=== PATIENT | female | born 1960 | race Caucasian/White ===

== ENCOUNTER → 2018-07-03 07:54 | Outpatient (CLI) | payer MEDICARE, SELFPAY | PROVIDERS: PCP Physician Assistant; Visit Provider Orthopaedic Surgery | DX: Z01.812 Encounter for preprocedural laboratory examination (principal); M17.12 Unilateral primary osteoarthritis, left knee ==

== ENCOUNTER → 2018-07-03 07:59 | Outpatient (CLI) | payer MEDICARE, SELFPAY ==
--- NOTE | 2018-07-03 | DI.MRI.S_ITS ---
PROCEDURE: MR KNEE LT WO CON INDICATIONS: Encounter for preprocedural laboratory examination TECHNIQUE: Noncontrast sagittal PD fast spin echo and T2 fast spin echo with fat saturation, sagittal 3-D FLASH with fat saturation; coronal T1 spin echo and PD fast spin echo with fat saturation, and axial PD fast spin echo with fat saturation through the knee. COMPARISON: None. FINDINGS: Image quality: Partially degraded by motion artifact. Menisci: Medial extrusion of the medial meniscus is present. There is amorphous high signal intensity within the anterior horn, body, and posterior horns of the medial meniscus, demonstratinginferior and superior articular articular surface extension. There is fragmentation of the medial meniscus. Linear high T2 signal intensity traverses the anterior horn, body, and posterior horn of the lateral meniscus, demonstrating inferior articular surface extension, indicating oblique tearing. Cruciate ligaments: The anterior and posterior cruciate ligaments appear intact. Medial structures: The medial collateral ligament demonstrates mild T2 signal elevation within its deep aspect. Visualized portions of the pes anserinus tendons appear normal. There is a small amount of medial bursal fluid. Lateral structures: The lateral collateral ligament, long and short heads of the biceps femoris tendon appear intact. The popliteus tendon appears normal. Iliotibial band appears normal. Anterior structures: The quadriceps and patellar tendons appear intact. Patellar alignment is normal. No femoral trochlear dysplasia or ventral trochlear prominence. No edema in the infrapatellar fat pad. Bones and cartilage: No bone marrow contusions or fractures. There is severe tricompartmental periarticular osteophyte formation, worst at the medial compartment margins. There is severe diffuse articular cartilage loss overlying the weightbearing aspects of the medial femoral condyle and medial tibial plateau. Mild diffuse articular cartilage loss overlies the weightbearing aspects of the lateral femoral condyle and lateral tibial plateau. Severe articular cartilage loss overlies the lateral aspect of the lateral patellar facet, as well as the central femoral trochlea. A few small intraosseous ganglia within the lateral patellar facet as well as the weightbearing aspects of the medial femoral condyle and medial tibial plateau are present. Joint space: There is a small knee joint effusion and a trace Whelan's cyst. 9 mm intra-articular loose body within the posterior lateral compartment. Normal appearing synovial plicae are incidentally noted. IMPRESSION: 1. Tricompartmental osteoarthritis with associated articular cartilage loss. 2. Medial and lateral meniscal tearing. 3. Medial bursitis. 4. Partial-thickness medial collateral ligament tear. 5. Knee joint effusion and intra-articular loose body. Dictated by: Trevor Meredith M.D. on 07/03/2018 at 9:52 Approved by: Trevor Meredith M.D. on 07/03/2018 at 9:58
[2018-07-03 10:48] LABS: Add Manual Diff / Slide Review NO; Basophils Absolute Auto 100 /uL (0-100); Basophils Percent Auto 0.5 % (0-2); Eosinophils Absolute Auto 300 /uL (0-450); Eosinophils Percent Auto 2.8 % (2-4); Hematocrit 39.6 % (36-46); Hemoglobin 13.8 g/dL (12.0-16.0); Lymphocytes Absolute Auto 3000 /uL (1100-4500); Lymphocytes Percent Auto 31.1 % (25-40); Mean Corpuscular HGB Conc 34.9 % (30-36); Mean Corpuscular Hemoglobin 30.1 PG (26-34); Mean Corpuscular Volume 86.1 fL (80-100); Monocytes Absolute Auto 800 /uL (0-900); Monocytes Percent Auto 8.1 % (3-14); Neutrophils Absolute Auto 5500 /uL (1500-7000); Neutrophils Percent Auto 57.5 % (50-75); Platelet Count 220 X10^3/uL (150-400); Red Cell Distribution Width 14.2 % (11.6-14.8); White Blood Cell Count 9.6 X10^3/uL (4.5-11.0)
[2018-07-03 11:03] LABS: Hemoglobin A1C% w Est Avg Glu 7.1 % (4.0-6.0)
[2018-07-03 11:18] LABS: Carbon Dioxide 29 mmol/L (22-32); Chloride 99 mmol/L (98-107); HEMOLYSIS < 15 (0-50); Potassium 4.4 mmol/L (3.4-5.1); Sodium 140 mmol/L (137-145)
== END ==
PROVIDERS: PCP Physician Assistant; Visit Provider Orthopaedic Surgery
DX: M17.10 Unilateral primary osteoarthritis, unspecified knee (principal); Z01.818 Encounter for other preprocedural examination; Z01.812 Encounter for preprocedural laboratory examination; R73.9 Hyperglycemia, unspecified
CPT/HCPCS: 36415; 73721; 80051; 83036; 85025; 93005

== ENCOUNTER → 2018-07-04 19:53 | Outpatient (REF) | payer MEDICARE, SELFPAY | LOC: LAB 19:53 | PROVIDERS: PCP Physician Assistant; Visit Provider Physician Assistant | DX: R31.9 Hematuria, unspecified (principal) | CPT/HCPCS: 87077; 87086; 87186 ==

== ENCOUNTER 2018-08-08 09:01 | Observation (INO) | payer MEDICARE, SELFPAY ==
[2018-07-29 10:01] VITALS: BMI 44.4
[2018-08-07] VITALS (13 sets, daily range): BP systolic 100–131; BP diastolic 36–85; PULSE 70–90; RESP 12–18; TEMP 36.2–37; O2SAT 95–98; BMI 44.3
--- NOTE | 2018-08-07 09:02 | PM.PREOP ---
Pre-operative Note Interval Note History & Physical reviewed/Exam performed by Physician: Yes Changes to H&P: No
[2018-08-07] MEDS: LACTATED RINGERS 1,000 ML 42 ML IV ×2 (10:00→13:10)
[2018-08-07] MEDS: ACETAMINOPHEN 325 MG TABLET 975 MG PO ×3 (10:12→22:18)
[2018-08-07] MEDS: PREGABALIN 75 MG CAPSULE PO (10:12)
--- NOTE | 2018-08-07 11:15 | DI.RAD.S_ITS ---
PROCEDURE: XR KNEE LT 1TO2V INDICATIONS: LT TOTAL KNEE TECHNIQUE: 2 view(s) of the knee acquired. COMPARISON: None. FINDINGS: Bones: Patient is status post knee joint arthroplasty. Hardware components are in expected positions. Visualized bony structures are intact. Chronic deformity of the proximal tibia. Soft tissues: Overlying postoperative changes are noted. IMPRESSION: Expected postoperative appearance Dictated by: Edwar Valles M.D. on 08/07/2018 at 14:30 Approved by: Edwar Valles M.D. on 08/07/2018 at 14:31
[2018-08-07] MEDS: CEFAZOLIN 2 GM/100 ML FROZ.PIGGY IV ×2 (11:35→19:32)
[2018-08-07] MEDS: LIDOCAINE 1% W/EPI INJ 20 ML INJ (12:01)
[2018-08-07] MEDS: TRANEXAMIC ACID 1,000 MG VIAL 1000 MG INJ (12:05)
--- NOTE | 2018-08-07 12:16 | SUR.OPER ---
Supine on padded OR bed. Pillow under head, arms secured on padded armboards <90 degree abduction. Safety belt across torso. Non-operative leg secured with tape over blanket over lower leg. Operative leg secured in DeMayo/Bhavik positioner. Foam padded brace at thigh of operative leg.
[2018-08-07] MEDS: POVIDONE-IODINE 15 ML, SODIUM CHLORIDE 0.9% 250 ML TOP (12:37)
[2018-08-07] MEDS: BUPIVACAINE 0.5% W/ EPI (PF) 20 ML, BUPIVACAINE LIPOSOME 266 MG, SODIUM CHLORIDE 0.9% 8... INJ (12:39)
[2018-08-07] MEDS: BUPIVACAINE 0.5% W/ EPI (PF) 10 ML, TRANEXAMIC ACID 1,000 MG, SODIUM CHLORIDE 0.9% 20 ML INJ (12:40)
--- NOTE | 2018-08-07 13:39 | PM.OP.1 ---
Operative Date/Time/Diagnoses Date of procedure: 08/07/18 Time of procedure: 13:39 Pre-op diagnosis: Severe left knee osteoarthritis Post-op diagnosis: same Procedure & Clinicians Procedure: Total knee arthroplasty left knee Same procedure as scheduled: Yes Indications: The patient presents today for total knee arthroplasty after failure of conservative treatment. The nature of the procedure including the risks and benefits, alternatives, postoperative course and expected outcome were discussed and all questions answered. Consent was obtained. Operative site confirmed and marked. Surgeon: Jose Guerrier Mechanical Product Design Engineer: Frankie Cardoza Anesthesia Type: Spinal and Local Operative Notes Findings: The patient had severe osteoarthritis with a significant fixed varus deformity and flexion contracture. A +4 cut was necessary from what was planned. The femur was downsized from the planned 4 to a 3. Closure Type: primary Specimen(s): none sent Prosthetic devices, grafts, tissues, transplants, or devices: Llamas and [employer] BCS: 3 femoral component, 3 tibial component, 12 mm BCS polyethylene tray and 32 x 9 mm round patella Applied: implant(s) Estimated Blood Loss (mL): 75 Blood products transfused: none Tourniquet time (min): 30 Procedure in detail: The patient was taken to the operative suite and placed under spinal anesthesia. The patient was given prophylactic antibiotics prior to surgery. The patient was also given tranexamic acid, 1 g, just prior to surgery for postoperative hemostasis. The lateral knee was prepped and the joint injected with 20 mL of 1% Lidocaine with epinephrine. The knee was then prepped and draped in usual sterile fashion. The leg was exsanguinated with an Esmarch dressing and the tourniquet raised to 250 torr. A 15 cm anterior incision was made. Next a medial trivector arthrotomy was made. The extensor mechanism was marked to ensure accurate repair. Initial exposing dissection was carried out medially and laterally. The knee was then extended and the patellar thickness was measured and a cut made removing approximately 9 mm of bone with a goal of restoring normal patellar thickness. The patella was then sized and drilled. Some excess lateral bone was excised and the patellofemoral ligament released. The tourniquet was then released. The knee was then flexed and the Llamas & [employer] femoral guide was placed. The anterior pins were placed and the distal rotation holes drilled. The distal cutting guide was placed and the templated distal femoral cut was made. The templating cutting block was then placed and the anterior, posterior and chamfer cuts made. The Llamas [employer] tibial guide was placed and the alignment checked along the axis of the proximal tibial with a maria a. The proximal tibial cut was then made with an oscillating saw. All meniscus and bony debris was then removed. Flexion extension gaps were checked. The knee was much looser in flexion and extension. There was not room in extension for a 9 mm block. Four more mm of distal femur was resected. This better balance the gaps although there was still a somewhat larger gap in flexion and extension. Medial lateral balance was good with just slight increased medial laxity. The soft tissues were then injected with a combination of 20 mL of half percent Marcaine with epinephrine and 20 mL of Exparel. The trial components were then placed. The knee went into full extension and flexion beyond 120?. There was good medial- lateral balance throughout motion. Patellar tracking was excellent. The trial components were removed and size is confirmed for the final implants. The knee was then exsanguinated with an Esmarch dressing and the tourniquet reapplied for cementing. The knee was cleansed with Pulsavac irrigation and dried. The final components were cemented in with high viscosity vacuum mixed bone cement with antibiotics. The knee was held in extension and the patellar clamp until the cement had adequately cured. The knee was then irrigated with dilute Betadine solution. The extensor mechanism was closed with 5 interrupted #1 Vicryl sutures and a running 2 Quill suture at 90 degrees of flexion. The joint was then injected with a combination of 1 g of tranexamic acid and 20 mL of quarter percent Marcaine with epinephrine. The subcutaneous tissue was closed with 2-0 Vicryl. The skin was closed with perry and surgical adhesive. An Aquacel dressing and Elmer wrap were then applied. Complications: none Condition: stable Disposition: PACU Plan for aftercare: [facility] protocol for total knee arthroplasty.
--- NOTE | 2018-08-07 13:44 | P.OP_ITS ---
Operative Date/Time/Diagnoses Date of procedure: 08/07/18 Time of procedure: 13:39 Pre-op diagnosis: Severe left knee osteoarthritis Post-op diagnosis: same Procedure & Clinicians Procedure: Total knee arthroplasty left knee Same procedure as scheduled: Yes Indications: The patient presents today for total knee arthroplasty after failure of conservative treatment. The nature of the procedure including the risks and benefits, alternatives, postoperative course and expected outcome were discussed and all questions answered. Consent was obtained. Operative site confirmed and marked. Surgeon: Jose Guerrier Doughnut Icer: Frankie Cardoza Anesthesia Type: Spinal and Local Operative Notes Findings: The patient had severe osteoarthritis with a significant fixed varus deformity and flexion contracture. A +4 cut was necessary from what was planned. The femur was downsized from the planned 4 to a 3. Closure Type: primary Specimen(s): none sent Prosthetic devices, grafts, tissues, transplants, or devices: Llamas and [employer] BCS: 3 femoral component, 3 tibial component, 12 mm BCS polyethylene tray and 32 x 9 mm round patella Applied: implant(s) Estimated Blood Loss (mL): 75 Blood products transfused: none Tourniquet time (min): 30 Procedure in detail: The patient was taken to the operative suite and placed under spinal anesthesia. The patient was given prophylactic antibiotics prior to surgery. The patient was also given tranexamic acid, 1 g, just prior to surgery for postoperative hemostasis. The lateral knee was prepped and the ellen nt injected with 20 mL of 1% Lidocaine with epinephrine. The knee was then prepped and draped in usual sterile fashion. The leg was exsanguinated with an Esmarch dressing and the tourniquet raised to 250 torr. A 15 cm anterior incision was made. Next a medial trivector arthrotomy was made. The extensor mechanism was marked to ensure accurate repair. Initial exposing dissection was carried out medially and laterally. The knee was then extended and the patellar thickness was measured and a cut made removing approximately 9 mm of bone with a goal of restoring normal patellar thickness. The patella was then sized and drilled. Some excess lateral bone was excised and the patellofemoral ligament released. The tourniquet was then released. The knee was then flexed and the Llamas & [employer] femoral guide was placed. The anterior pins were placed and the distal rotation holes drilled. The distal cutting guide was placed and the templated distal femoral cut was made. The templating cutting block was then placed and the anterior, posterior and chamfer cuts made. The Llam[employer] tibial guide was placed and the alignment checked along the axis of the proximal tibial with a maria a. The proximal tibial cut was then made with an oscillating saw. All meniscus and bony debris was then removed. Flexion extension gaps were checked. The knee was much looser in flexion and extension. There was not room in extension for a 9 mm block. Four more mm of distal femur was resected. This better balance the gaps although there was still a somewhat larger gap in flexio n and extension. Medial lateral balance was good with just slight increased medial laxity. The soft tissues were then injected with a combination of 20 mL of half percent Marcaine with epinephrine and 20 mL of Exparel. The trial components were then placed. The knee went into full extension and flexion beyond 120?. There was good medial- lateral balance throughout motion. Patellar tracking was excellent. The trial components were removed and size is confirmed for the final implants. The knee was then exsanguinated with an Esmarch dressing and the tourniquet reapplied for cementing. The knee was cleansed with Pulsavac irrigation and dried. The final components were cemented in with high viscosity vacuum mixed bone cement with antibiotics. The knee was held in extension and the patellar clamp until the cement had adequately cured. The knee was then irrigated with dilute Betadine solution. The extensor mechanism was closed with 5 interrupted #1 Vicryl sutures and a running 2 Quill suture at 90 degrees of flexion. The joint was then injected with a combination of 1 g of tranexamic acid and 20 mL of quarter percent Marcaine with epinephrine. The subcutaneous tissue was closed with 2-0 Vicryl. The skin was closed with perry and surgical adhesive. An Aquacel dressing and Elmer wrap were then applied. Complications: none Condition: stable Disposition: PACU Plan for aftercare: [facility] protocol for total knee arthroplasty.
[2018-08-07] MEDS: LACTATED RINGERS 1,000 ML 125 ML IV ×2 (15:03→22:17)
--- NOTE | 2018-08-07 15:36 | PC.NURSE ---
Patient received from PACU, vss, awake and talkative. Aquacel with ZAIRA in place and intact. wiggling toes, palpable pulses. Oriented to room and call light, IV fluids started as ordered. Call light placed within reach. continue to monitor.
--- NOTE | 2018-08-07 15:49 | PT.IIE ---
Current Diagnoses Unilateral primary osteoarthritis, left knee (08/07/18) Surgery Performed Operation Date: 08/07/18 11:15 Actual Procedures p Total Knee Arthroplasty(Left) - Jose Guerrier MD Surgical History (Last Updated 07/29/18 @ 10:29 by Lisseth Storey RN) Hx of arthroscopy of left knee (Acute) Hx of arthroscopy of right knee (Acute ~2004) Hx of dilation and curettage (Acute) S/P LASIK surgery of both eyes (Acute ~2004) S/P wrist surgery (Acute ~2011) Medical History (Last Updated 07/29/18 @ 10:29 by Lisseth Storey RN) Anxiety (Acute) Diabetes (Acute) Edema (Acute) Fatty liver determined by biopsy (Acute ~2009) HTN (hypertension) (Acute) Hx of ectopic (Acute) Hyperlipidemia (Acute) Hypothyroid (Acute) BARBARA on CPAP (Acute) PMR (polymyalgia rheumatica) (Acute ~2007) Tonsil stone (Acute) UTI (urinary tract infection) (Acute 07/09/18) Umbilical hernia (Acute) Physical Therapy Inpatient Evaluation/Re-Eval M1 PT/OT-IP Prior Functional Status Start: 08/07/18 17:32 Freq: NEEDED Status: Active Protocol: Document 08/07/18 15:49 AB (Rec: 08/07/18 17:56 AB [id number]) Medical Review Prior Functional Status Medical History Reviewed Yes Communication able to make needs known Mobility and Gait pt stated that she is modified independent with all mobilities and ambulation with occasional use of SPC indoors and uses 4WW for outdoor mobility/long distance mobility Social History Household Members spouse Living Arrangements House Number of Floors (Floors) Two Floors Number of Stairs To Enter/Railing? 5 steps to enter with R rail ascending has 14 steps to get to bedroom level with R rails ascending and L sided ledge pt stated that she plans to stay on main level of the house Home Environment Standard Height Toilet Tub/Shower Home Equipment Four Wheel Walker Straight Cane Bedside Commode Hand Held Shower Grab Bars In Shower M2 PT-IP Current Condition Start: 08/07/18 17:32 Freq: NEEDED Status: Active Protocol: Document 08/07/18 15:49 AB (Rec: 08/07/18 17:56 AB [id number]) Physical Therapy Current Condition Current Condition Evaluation Date 08/07/18 Treatment Diagnosis s/p L TKA; difficulty in walking Onset Date 08/07/18 Weight Bearing Status Weight Bearing Status Weight Bear as Tolerated M3 PT-IP Subjective Start: 08/07/18 17:32 Freq: NEEDED Status: Active Protocol: Document 08/07/18 15:49 AB (Rec: 08/07/18 17:56 AB [id number]) Subjective Physical Therapy Visit Type Type Initial Evaluation Visit Start Time 15:49 Visit Stop Time 16:30 Total Visit Minutes 39 Number of TODDLER GUIDE Visits 0 Physical Therapy Visit Comments Patient Comments pt requesting to use the toilet Therapy Pain Assessment Pain When Pain Assessed At Rest Pain Present Pain Present Pain Reported Location Left Knee Intensity 1 Scale Used Numeric (1 - 10) Pain Management Techniques Apply Cold Re-positioning Timing of Activity with Medications M4 PT-IP Mobility and Gait Start: 08/07/18 17:32 Freq: NEEDED Status: Active Protocol: Document 08/07/18 15:49 AB (Rec: 08/07/18 17:56 AB [id number]) PT-Bed Mobility Assessment Supine to Sit Supine to Sit Standby Assistance Scooting Scooting to Edge of Bed Standby Assistance PT-Transfer Assessment Sit to and From Stand Sit to and from Stand Standby Assistance Equipment Transfer Assistive Device Gait Belt Front Wheeled Walker Transfers Transfer Destination Toilet Transfer Technique pt ambulated to the toilet Transfer Ability Level of Assist Minimal Assistance 1 Person Assistance Use of Upper Extremities Comments Mobility Comments pt completed sit to stand from EOB CGA and ambulated to the toilet using FWW min A and cues for quads activation and safety. pt ambulated out of the toilet using FWW min A and cues and agreed to sit up on chair. positioned pt on chair . ice pack provided. call light and table positioned. Gait Assessment Gait Distance (Feet) 12 Able to Maintain Weight Bearing Status Yes During Gait Assistive Devices Assistive Device Gait Belt Front Wheeled Walker Orthotic/Prosthetic Devices or Brace: No Gait Deviations General Gait Pattern Antalgic Decreased Stride Length Decreased Feet Clearance Step-to Gait Factors Limiting Gait Function Factors Limiting Gait Function Decreased Activity Tolerance Decreased Sensation Decreased Strength Limited Range of Motion Pain Poor Balance Comments Gait Comments able to walk to the toilet using FWW PT-Balance Assessment Sitting Balance and Reactions Static Sitting Balance Ability Good Dynamic Sitting Balance Ability Good Standing Balance and Reactions Static Standing Balance Ability Fair Dynamic Standing Balance Ability Fair Device Used FWW M5 PT-IP Objective Assessments Start: 08/07/18 17:32 Freq: NEEDED Status: Active Protocol: Document 08/07/18 15:49 AB (Rec: 08/07/18 17:56 AB [id number]) Orientation Orientation/Cognition Level of Alertness Alert Orientation Name Age Birthday Month Date Year Day of Week Place Situation Safety Awareness Understands Safety Issues Memory Description No Deficits Noted Gross Range of Motion Lower Extremity ROM Assessment Left Impaired Impairments L knee flexion: ~ 50 deg L knee extension: ~ 5 deg less from neutral Strength Lower Extremity Strength Assessment Left Impaired Knee 3+/5 Coordination Assessment Gross Coordination Gross Coordination WNL Sensation Assessment Sensation Sensation Description Numbness Comments Sensation Comments still c/o a little numbness on BLE but have motor control Muscle Tone Muscle Tone WNL Yes M6 PT-IP Treatment Start: 08/07/18 17:32 Freq: NEEDED Status: Active Protocol: Document 08/07/18 15:49 AB (Rec: 08/07/18 17:56 AB [id number]) Physical Therapy Treatment Exercises Exercises Quad Sets Heel Slides Education Education Provided Precautions Weight Bearing Status Post-Op Packet Safety M7 PT-IP Assessment and Plan Start: 08/07/18 17:32 Freq: NEEDED Status: Active Protocol: Document 08/07/18 15:49 AB (Rec: 08/07/18 17:56 AB [id number]) PT Summary Assessment and Plan Potential Rehabilitation Potential Good Status of Condition at Evaluation Stable Summary Impairments Pain ROM Strength Balance Coordination Sensation Bed Mobility Transfers Gait Activity Tolerance Assessment Summary pt requiring one person assist with mobility and will likely improve in mobility during hospital stay. pt will have her spouse to assist her at home. will conduct caregiver training when appropriate and stair climbing training to be completed prior to d/c. Goals Bed Mobility Goal Independent Transfer Goal Independent Front Wheeled Walker Gait Goal Independent Front Wheel Walker Gait Distance 200 Other Goals up/down 5 steps R rail SBA Days to Meet Goals 3 Frequency of Treatment Frequency Of Treatment Twice a Day Treatment Plan Physical Therapy Treatment Plan Bed Mobility Training Transfer Training Gait Training Therapeutic Exercise Balance Retraining Post Op Education Discharge Planning Hot or Cold Pack Neuromuscular Re-ed Coordination Retraining Manual Therapy Other Recommendations and Next Treatment ambulation, stair climbing Focus Recommendations To Nursing Amount of Assist Needed 1 Person Assist Discharge Recommendations PT Discharge Recommendations Home with Assistance Outpatient PT
[2018-08-07] MEDS: OXYCODONE IR 5 MG TABLET PO ×3 (16:34→22:17)
[2018-08-07] MEDS: HYDROMORPHONE 0.5 MG INJ IV ×2 (18:13→22:40)
[2018-08-07] MEDS: ROSUVASTATIN 10 MG TABLET 5 MG PO (22:18)
[2018-08-07] MEDS: METOPROLOL ER 50 MG TABLET 100 MG PO (22:19)
[2018-08-07] MEDS: METFORMIN HCL 500 MG TABLET 1000 MG PO (22:19)
[2018-08-07] MEDS: AMLODIPINE 5 MG TABLET 10 MG PO (22:20)
[2018-08-07] MEDS: ASPIRIN EC 81 MG TABLET PO (22:20)
[2018-08-08] VITALS (10 sets, daily range): BP systolic 127–148; BP diastolic 69–87; PULSE 80–93; RESP 15–20; TEMP 36.1–37.3; O2SAT 92–98
[2018-08-08] MEDS: OXYCODONE IR 5 MG TABLET PO ×3 (01:24→08:53)
[2018-08-08] MEDS: MELATONIN 3 MG TABLET 6 MG PO (01:27)
--- NOTE | 2018-08-08 01:45 | PC.NURSE ---
Addendum entered by Tammy Steele R.N. 08/08/18 05:52: Had Oxycodone at 0454 for 8/10 pain and states pain is only down to 7/10; requested/medicated with IV Dilaudid. Original Note: Patient is alert and oriented. Breath sounds CTA with RA sat of 94%. HRR. Denies nausea. BT present and is passing flatus. Voiding frequently but denies dysuria or urgency and is continent. Able to turn self in bed. Out of bed with walker and 1 assist as is weak in left LE. Dressing to left knee is CDI with alla wrap covering. Complains of 6/10 sharp pressure in knee so medicated with Oxycodone and ice pack applied. Wearing SCD on right leg but declines on left due to knee pain. Using CPAP to sleep. Requested/medicated with Melatonin. Fall risk score is high and bed alarm is activated.
[2018-08-08] MEDS: CEFAZOLIN 2 GM/100 ML FROZ.PIGGY IV (02:43)
[2018-08-08] MEDS: HYDROMORPHONE 0.5 MG INJ IV ×3 (02:51→07:55)
[2018-08-08] MEDS: LEVOTHYROXINE 75 MCG TABLET PO (05:47)
[2018-08-08] MEDS: LEVOTHYROXINE 100 MCG TABLET PO (05:47)
[2018-08-08 06:33] LABS: Hematocrit 35.3 % (36-46); Hemoglobin 12.2 g/dL (12.0-16.0)
[2018-08-08] MEDS: ACETAMINOPHEN 325 MG TABLET 975 MG PO ×3 (08:00→22:42)
[2018-08-08] MEDS: METFORMIN HCL 500 MG TABLET 1000 MG PO ×2 (08:00→17:10)
[2018-08-08] MEDS: LOSARTAN 50 MG TABLET 100 MG PO (08:00)
[2018-08-08] MEDS: hydroCHLOROthiazide 25 MG TABLET PO (08:01)
[2018-08-08] MEDS: MELOXICAM 7.5 MG TABLET 15 MG PO (08:01)
[2018-08-08] MEDS: ASPIRIN EC 81 MG TABLET PO ×2 (08:01→20:42)
--- NOTE | 2018-08-08 09:09 | P.PN_ITS ---
Subjective Date Patient Seen: 08/08/18 Time Patient Seen: 09:07 Interval history: Hospital day 2, postop day 1 following left total knee arthroplasty by Dr. Guerrier. Patient remained stable postoperatively. She did do some physical therapy yesterday but having increased knee pain today. She has had receive IV Dilaudid this morning. Patient concerned about going home today as she lives on [facility] and does not feel that she is going to be functioning well enough. She is scheduled to go to [facility]. Exam Vital Signs (past 8 hours): - 08/08/18 04:54 08/08/18 08:00 Temperature 98.8 F 97.7 F Pulse Rate 87 84 Respiratory Rate 16 Blood Pressure 128/69 131/79 Pulse Oximetry 97 Fraction of Inspired Oxygen 21 Oxygen Delivery Method Room Air Oxygen Flow Rate 0 Narrative Exam Narrative: Patient is alert and oriented and appears in moderate discomfort lying in bed. Legs. Elmer wrap an Aquacel dressing to left knee is dry without drainage or inflammation. No calf pain or swelling. Objective Labs Result Diagrams: 08/08/18 06:02 Labs: Laboratory Results - last 24 hr 08/08/18 06:02 Hgb 12.2 Hct 35.3 L Assessment & Plan Post-op Postoperative Procedures Operation Date: 08/07/18 11:15 Actual Procedures Side Surgeon p Total Knee Arthroplasty Left Jose Guerrier MD Plan: Will have patient work with PT more today. Weight on discharge until tomorrow when she is more stable.
--- NOTE | 2018-08-08 11:00 | PT.IPTN ---
Current Diagnoses Unilateral primary osteoarthritis, left knee (08/07/18) Surgery Performed Operation Date: 08/07/18 11:15 Actual Procedures p Total Knee Arthroplasty(Left) - Jose Guerrier MD Physical Therapy Treatment Note M2 PT-IP Current Condition Start: 08/07/18 17:32 Freq: NEEDED Status: Active Protocol: Document 08/07/18 15:49 AB (Rec: 08/07/18 17:56 AB [id number]) Physical Therapy Current Condition Current Condition Evaluation Date 08/07/18 Treatment Diagnosis s/p L TKA; difficulty in walking Onset Date 08/07/18 Weight Bearing Status Weight Bearing Status Weight Bear as Tolerated M3 PT-IP Subjective Start: 08/07/18 17:32 Freq: NEEDED Status: Active Protocol: Document 08/08/18 09:37 EA (Rec: 08/08/18 09:44 EA [id number]) Subjective Physical Therapy Visit Type Type Treatment Note Visit Start Time 09:00 Visit Stop Time 09:30 Total Visit Minutes 30 Physical Therapy Visit Comments Patient Comments Patient agreeable to mobilize and transfer to chair Patient Goals Patient woud like to have at least independent in transfer and be able amb to toilet upon discharge indep. Therapy Pain Assessment Pain When Pain Assessed During Mobility Pain Present Pain Present Pain Reported Location Left Knee Intensity 5 Description Acute M4 PT-IP Mobility and Gait Start: 08/07/18 17:32 Freq: NEEDED Status: Active Protocol: Document 08/08/18 09:37 EA (Rec: 08/08/18 09:44 EA [id number]) PT-Bed Mobility Assessment Supine to Sit Supine to Sit Minimal Assistance Sit to Supine Sit to Supine Minimal Assistance Scooting Scooting to Edge of Bed Contact Guard Assistance PT-Transfer Assessment Sit to and From Stand Sit to and from Stand Minimal Assistance Equipment Transfer Assistive Device Gait Belt Front Wheeled Walker Transfers Transfer Destination Bed Chair Transfer Technique stepping Transfer Ability Level of Assist Minimal Assistance Comments Mobility Comments Patient requires cues for transfers as patient limits WB to affected leg. Gait Assessment Gait Gait Assistance Required: Contact Guard Assist Distance (Feet) 10 Able to Maintain Weight Bearing Status Yes During Gait Assistive Devices Assistive Device Gait Belt Front Wheeled Walker Gait Deviations General Gait Pattern Antalgic Factors Limiting Gait Function Factors Limiting Gait Function Decreased Activity Tolerance Decreased Strength Limited Range of Motion Pain Stair Climbing Assessment Comments Stair Climbing Comments unable to practice at this time due decreased activity tolerance and pain PT-Balance Assessment Sitting Balance and Reactions Static Sitting Balance Ability Good Dynamic Sitting Balance Ability Good Standing Balance and Reactions Static Standing Balance Ability Good Dynamic Standing Balance Ability Fair M5 PT-IP Objective Assessments Start: 08/07/18 17:32 Freq: NEEDED Status: Active Protocol: Document 08/07/18 15:49 AB (Rec: 08/07/18 17:56 AB [id number]) Orientation Orientation/Cognition Level of Alertness Alert Orientation Name Age Birthday Month Date Year Day of Week Place Situation Safety Awareness Understands Safety Issues Memory Description No Deficits Noted Gross Range of Motion Lower Extremity ROM Assessment Left Impaired Impairments L knee flexion: ~ 50 deg L knee extension: ~ 5 deg less from neutral Strength Lower Extremity Strength Assessment Left Impaired Knee 3+/5 Coordination Assessment Gross Coordination Gross Coordination WNL Sensation Assessment Sensation Sensation Description Numbness Comments Sensation Comments still c/o a little numbness on BLE but have motor control Muscle Tone Muscle Tone WNL Yes M6 PT-IP Treatment Start: 08/07/18 17:32 Freq: NEEDED Status: Active Protocol: Document 08/08/18 09:37 EA (Rec: 08/08/18 09:44 EA [id number]) Physical Therapy Treatment Exercises Exercises Ankle Pumps Gluteal Sets Quad Sets Heel Slides Short Arc Quads Education Education Provided Precautions Weight Bearing Status Safety M7 PT-IP Assessment and Plan Start: 08/07/18 17:32 Freq: NEEDED Status: Active Protocol: Document 08/08/18 09:37 EA (Rec: 08/08/18 09:44 EA [id number]) PT Summary Assessment and Plan Potential Rehabilitation Potential Good Status of Condition at Evaluation Stable Summary Impairments Pain ROM Strength Balance Bed Mobility Transfers Gait Activity Tolerance Progress Towards Goals Slow Progress due to Pain Slow Progress due to Activity Tolerance Assessment Summary Patient exhibits decreased tolerance to mobility than yesterday due to increased in pain though pain meds was in good timing. No signs of DVT to LLE. Patient requires assistance at all mobility/ transfers at this time and will continue to benefit with skilled PT. Continue with current POC and progress as tolerated. Goals Transfer Goal Independent Front Wheeled Walker Gait Goal Independent Front Wheel Walker Gait Distance 200 Other Goals up/down 5 steps R rail SBA Days to Meet Goals 2 Frequency of Treatment Frequency Of Treatment Twice a Day Treatment Plan Physical Therapy Treatment Plan Bed Mobility Training Transfer Training Gait Training Therapeutic Exercise Post Op Education Hot or Cold Pack Recommendations To Nursing Amount of Assist Needed 1 Person Assist Discharge Recommendations PT Discharge Recommendations Home with Assistance
[2018-08-08] MEDS: OXYCODONE IR 10 MG TABLET PO ×4 (12:03→21:40)
--- NOTE | 2018-08-08 14:35 | PC.NURSE ---
Patient states pain has been improving and better controlled today with increased oxycodone as ordered. Patient up with PT, 1 min assist and walker. Aquacel with ZAIRA wrap in place and remains CDI. Call light within reach, continue to monitor.
--- NOTE | 2018-08-08 15:00 | PT.IPTN ---
Current Diagnoses Unilateral primary osteoarthritis, left knee (08/07/18) Surgery Performed Operation Date: 08/07/18 11:15 Actual Procedures p Total Knee Arthroplasty(Left) - Jose Guerrier MD Physical Therapy Treatment Note M2 PT-IP Current Condition Start: 08/07/18 17:32 Freq: NEEDED Status: Active Protocol: Document 08/07/18 15:49 AB (Rec: 08/07/18 17:56 AB [id number]) Physical Therapy Current Condition Current Condition Evaluation Date 08/07/18 Treatment Diagnosis s/p L TKA; difficulty in walking Onset Date 08/07/18 Weight Bearing Status Weight Bearing Status Weight Bear as Tolerated M3 PT-IP Subjective Start: 08/07/18 17:32 Freq: NEEDED Status: Active Protocol: Document 08/08/18 14:55 GGD (Rec: 08/08/18 14:59 GGD [id number]) Subjective Physical Therapy Visit Type Type Treatment Note Visit Start Time 14:30 Visit Stop Time 14:55 Total Visit Minutes 25 Number of METER REPAIRER HELPER Visits 1 Physical Therapy Visit Comments Patient Comments Pt states she doing better. Therapy Pain Assessment Pain When Pain Assessed During Mobility Pain Present Pain Present Pain Reported M4 PT-IP Mobility and Gait Start: 08/07/18 17:32 Freq: NEEDED Status: Active Protocol: Document 08/08/18 14:55 GGD (Rec: 08/08/18 14:59 GGD [id number]) PT-Bed Mobility Assessment Supine to Sit Supine to Sit Contact Guard Assistance Sit to Supine Sit to Supine Standby Assistance Scooting Scooting to Edge of Bed Standby Assistance PT-Transfer Assessment Sit to and From Stand Sit to and from Stand Standby Assistance Equipment Transfer Assistive Device Gait Belt Front Wheeled Walker Transfers Transfer Destination Bed Transfer Technique pt ambulated to the toilet Transfer Ability Level of Assist Minimal Assistance 1 Person Assistance Use of Upper Extremities Comments Mobility Comments pt assisted left LE in and out of bed with right LE. Gait Assessment Gait Gait Assistance Required: Contact Guard Assist Distance (Feet) 50 Able to Maintain Weight Bearing Status Yes During Gait Assistive Devices Assistive Device Gait Belt Front Wheeled Walker Gait Deviations General Gait Pattern Antalgic Factors Limiting Gait Function Factors Limiting Gait Function Decreased Activity Tolerance Decreased Strength Limited Range of Motion Pain M5 PT-IP Objective Assessments Start: 08/07/18 17:32 Freq: NEEDED Status: Active Protocol: Document 08/07/18 15:49 AB (Rec: 08/07/18 17:56 AB [id number]) Orientation Orientation/Cognition Level of Alertness Alert Orientation Name Age Birthday Month Date Year Day of Week Place Situation Safety Awareness Understands Safety Issues Memory Description No Deficits Noted Gross Range of Motion Lower Extremity ROM Assessment Left Impaired Impairments L knee flexion: ~ 50 deg L knee extension: ~ 5 deg less from neutral Strength Lower Extremity Strength Assessment Left Impaired Knee 3+/5 Coordination Assessment Gross Coordination Gross Coordination WNL Sensation Assessment Sensation Sensation Description Numbness Comments Sensation Comments still c/o a little numbness on BLE but have motor control Muscle Tone Muscle Tone WNL Yes M6 PT-IP Treatment Start: 08/07/18 17:32 Freq: NEEDED Status: Active Protocol: Document 08/08/18 14:55 GGD (Rec: 08/08/18 15:00 GGD [id number]) Physical Therapy Treatment Exercises Exercises Ankle Pumps Gluteal Sets Quad Sets Heel Slides Seated Knee Flexion/Extension Education Education Provided Safety M7 PT-IP Assessment and Plan Start: 08/07/18 17:32 Freq: NEEDED Status: Active Protocol: Document 08/08/18 14:55 GGD (Rec: 08/08/18 14:59 GGD [id number]) PT Summary Assessment and Plan Summary Assessment Summary Pt improving with mobility. She had increase in pain with weight bearing that improved with ambulation. She did need cues for heel down in standing and with gait. She needs stair training, before D/C home. Frequency of Treatment Frequency Of Treatment Twice a Day Treatment Plan Physical Therapy Treatment Plan Bed Mobility Training Transfer Training Gait Training Therapeutic Exercise Post Op Education Hot or Cold Pack Other Recommendations and Next Treatment stair mobility Focus Recommendations To Nursing Amount of Assist Needed 1 Person Assist Discharge Recommendations PT Discharge Recommendations Home with Assistance Outpatient PT
[2018-08-08] MEDS: METOPROLOL ER 50 MG TABLET 100 MG PO (20:41)
[2018-08-08] MEDS: AMLODIPINE 5 MG TABLET 10 MG PO (20:41)
[2018-08-08] MEDS: ROSUVASTATIN 10 MG TABLET 5 MG PO (20:42)
[2018-08-09] VITALS: BP 107/64; PULSE 86; RESP 16; TEMP 37.3; O2SAT 97
[2018-08-09] MEDS: OXYCODONE IR 10 MG TABLET PO ×4 (00:39→10:51)
[2018-08-09] MEDS: LEVOTHYROXINE 75 MCG TABLET PO (04:32)
[2018-08-09] MEDS: LEVOTHYROXINE 100 MCG TABLET PO (04:43)
[2018-08-09 06:15] VITALS: BP 106/55; PULSE 82; RESP 16; TEMP 36.8; O2SAT 92
[2018-08-09 07:00] VITALS: BP 134/76; PULSE 79; RESP 18; TEMP 36.8; O2SAT 96
[2018-08-09] MEDS: METFORMIN HCL 500 MG TABLET 1000 MG PO (07:44)
--- NOTE | 2018-08-09 09:00 | PM.DS.1 ---
History of Present Illness Date Patient Seen: 08/09/18 Time Patient Seen: 08:30 Chief complaint: Left Total Knee Arthroplasty [id number] Narrative: Patient seen bedside s/p L. TKA with Dr. Guerrier on 08/07/18. Patient is POD #2. She is doing better, her pain is well controlled. She worked well with physical therapy yesterday. She is ready to go home. She denies chest pain, shortness of breath, and nausea/vomiting. Discharge Providers Date of admission: 08/07/18 09:10 Discharge Date: 08/09/18 Primary care physician: Brittany Torres PA-C Consults: 08/07/18 14:31 Consult to Discharge Planning Routine Comment: Consult to Physical Therapy Evaluate & Treat Comment: Physician Instructions: postop TKA protocol Consult to Respiratory Therapy Evaluate & Treat Comment: Physician Instructions: Evaluate and treat Discharge provider: Rebecca Walsh PA-C Summary Discharge Diagnosis: Left knee osteoarthritis Hospital Course: Patient was admitted to the hospital s/p L. TKA with Dr. Guerrier on 08/07/18. Patient tolerated the procedure well with no major complications. They were transferred to the acute care floor where they were placed on the standard joint replacement pathway and protocol. They were seen by physical therapy who recommended that they be discharged home. They were stable and ready for discharge on 08/09/18. Status at Discharge Cognitive/behavioral status at discharge: oriented Functional status at discharge: uses cane/walker Overall status at discharge: patient is progressing back to baseline Time Spent with Patient Less than 30 minutes Exam Vital Signs (past 8 hours): - 08/09/18 06:15 Temperature 98.3 F Pulse Rate 82 Respiratory Rate 16 Blood Pressure 106/55 L Pulse Oximetry 92 Fraction of Inspired Oxygen 21 Oxygen Delivery Method Room Air,CPAP Oxygen Flow Rate 0 Narrative Exam Narrative: Well-developed well-nourished no acute distress. Alert and oriented x3. Dressing on left knee is clean dry intact with no signs of discharge. Minimal erythema and generalized swelling around the joint. Full range of motion of the ankle, calf soft and compressible. Neurovascularly intact in the extremity Objective Labs Result Diagrams: 08/08/18 06:02 Discharge Plan Discharge Plan Patient Disposition: Home Discharge Med Rec/Prescriptions Prescriptions: New acetaminophen 325 mg Tablet 975 mg PO TID Qty: 0 RF: 0 aspirin 81 mg Tablet,Delayed Release (Dr/Ec) 81 mg PO BID Qty: 0 RF: 0 oxycodone 5 mg Tablet 5 mg PO Q3HR PRN (Reason: Pain, Moderate (4-6)) Qty: 0 RF: 0 Continued meloxicam 15 mg Tablet 15 mg PO DAILY RF: 0 metoprolol succinate 100 mg Tablet Extended Release 24 Hr 100 mg PO BEDTIME RF: 0 amlodipine [Norvasc] 10 mg Tablet 10 mg PO BEDTIME RF: 0 metformin 1,000 mg Tablet 1,000 mg PO BID RF: 0 hydrochlorothiazide 25 mg Tablet 25 mg PO QAM RF: 0 losartan 100 mg Tablet 100 mg PO QAM RF: 0 rosuvastatin [Crestor] 5 mg Tablet 5 mg PO BEDTIME RF: 0 Victoza 2-Alex 0.6 mg/0.1 mL (18 mg/3 mL) Pen Injector 1.8 mg SUBCUT QAM RF: 0 levothyroxine 175 mcg Capsule 175 mcg PO DAILY RF: 0 melatonin 5 mg Tablet 5 mg PO BEDTIME PRN (Reason: Sleep) RF: 0 Discontinued aspirin [Aspir-81] 81 mg Tablet,Delayed Release (Dr/Ec) 1 tab PO QAM RF: 0 acetaminophen [Tylenol Arthritis Pain] 650 mg Tablet Extended Release 1,300 mg PO Q8H PRN (Reason: pain) RF: 0 Follow up/Referrals: Jose Guerrier MD [Physician] - (Follow up at the office at your previously scheduled post-operative appointment.) Provider Discharge Instructions Activity: Weightbearing as tolerated, use walker until cleared by physical therapy. Elevate operative leg regularly to reduce swelling. Cold/Heat Therapy: Apply ice to affected area for 20 minutes at a time at least hourly while awake. Skin/Wound/Dressing Care Report to your healthcare provider any signs of infection, such as:: chills, fever, night sweats, increased pain, unusual drainage and unusual redness Dressing: Keep dressing clean, dry, and intact. May shower with it in place but no soaking. Visit Report/Discharge Packet Instructions: DI for Knee Replacement, Oxycodone Stand Alone Forms: Surgery Discharge Discharge Data Primary Care Provider: Brittany Torres Attending Provider: Jose Guerrier Admit Date/Time: 08/07/18 09:10 Quality VTE Deep Vein Thrombosis/Pulmonary Embolism Present on Admission: No
--- NOTE | 2018-08-09 09:35 | PT.IPTN ---
Current Diagnoses Unilateral primary osteoarthritis, left knee (08/07/18) Surgery Performed Operation Date: 08/07/18 11:15 Actual Procedures p Total Knee Arthroplasty(Left) - Jose Guerrier MD Physical Therapy Treatment Note M2 PT-IP Current Condition Start: 08/07/18 17:32 Freq: NEEDED Status: Active Protocol: Document 08/07/18 15:49 AB (Rec: 08/07/18 17:56 AB [id number]) Physical Therapy Current Condition Current Condition Evaluation Date 08/07/18 Treatment Diagnosis s/p L TKA; difficulty in walking Onset Date 08/07/18 Weight Bearing Status Weight Bearing Status Weight Bear as Tolerated M3 PT-IP Subjective Start: 08/07/18 17:32 Freq: NEEDED Status: Active Protocol: Document 08/09/18 09:35 GGD (Rec: 08/09/18 10:04 GGD [email or web address]) Subjective Physical Therapy Visit Type Type Treatment Note Visit Start Time 09:10 Visit Stop Time 09:35 Total Visit Minutes 25 Number of ADMINISTRATIVE EXECUTIVE Visits 2 Physical Therapy Visit Comments Patient Comments Pt hoping to go home today. M4 PT-IP Mobility and Gait Start: 08/07/18 17:32 Freq: NEEDED Status: Active Protocol: Document 08/09/18 09:35 GGD (Rec: 08/09/18 10:04 GGD [id number]) PT-Bed Mobility Assessment Supine to Sit Supine to Sit Contact Guard Assistance Sit to Supine Sit to Supine Standby Assistance Scooting Scooting to Edge of Bed Standby Assistance PT-Transfer Assessment Sit to and From Stand Sit to and from Stand Standby Assistance Equipment Transfer Assistive Device Gait Belt Front Wheeled Walker Transfers Transfer Destination Bed Transfer Technique pt ambulated to the toilet Transfer Ability Level of Assist Minimal Assistance 1 Person Assistance Use of Upper Extremities Comments Mobility Comments pt assisted left LE in and out of bed with right LE. Gait Assessment Gait Gait Assistance Required: Contact Guard Assist Distance (Feet) 80 Able to Maintain Weight Bearing Status Yes During Gait Assistive Devices Assistive Device Gait Belt Front Wheeled Walker Gait Deviations General Gait Pattern Antalgic Factors Limiting Gait Function Factors Limiting Gait Function Decreased Activity Tolerance Decreased Strength Limited Range of Motion Pain Stair Climbing Assessment Evaluation Level of Assist On Stairs Contact Guard Assistance Devices Stair Climbing Assistive Devices Right Railing Technique/Endurance Stair Climbing Direction Ascend and Descend Stair Climbing Technique Step to Step Number of Steps Climbed 3 Query Text: Stair Climbing Set # Repetitions (reps) 1 Comments Stair Climbing Comments Pt need mod cues for stair M5 PT-IP Objective Assessments Start: 08/07/18 17:32 Freq: NEEDED Status: Active Protocol: Document 08/07/18 15:49 AB (Rec: 08/07/18 17:56 AB [id number]) Orientation Orientation/Cognition Level of Alertness Alert Orientation Name Age Birthday Month Date Year Day of Week Place Situation Safety Awareness Understands Safety Issues Memory Description No Deficits Noted Gross Range of Motion Lower Extremity ROM Assessment Left Impaired Impairments L knee flexion: ~ 50 deg L knee extension: ~ 5 deg less from neutral Strength Lower Extremity Strength Assessment Left Impaired Knee 3+/5 Coordination Assessment Gross Coordination Gross Coordination WNL Sensation Assessment Sensation Sensation Description Numbness Comments Sensation Comments still c/o a little numbness on BLE but have motor control Muscle Tone Muscle Tone WNL Yes M6 PT-IP Treatment Start: 08/07/18 17:32 Freq: NEEDED Status: Active Protocol: Document 08/09/18 09:35 GGD (Rec: 08/09/18 10:04 GGD [id number]) Physical Therapy Treatment Exercises Exercises Ankle Pumps Gluteal Sets Quad Sets Heel Slides Seated Knee Flexion/Extension Education Education Provided Weight Bearing Status Safety M7 PT-IP Assessment and Plan Start: 08/07/18 17:32 Freq: NEEDED Status: Active Protocol: Document 08/09/18 09:35 GGD (Rec: 08/09/18 10:04 GGD [id number]) PT Summary Assessment and Plan Summary Assessment Summary Pt improving with mobility. She is safe and stable with gait and stair mobility. She need cues for heel down in standing and sequencing with stairs. She is safe for D/C home when medically stable. Frequency of Treatment Frequency Of Treatment Twice a Day Treatment Plan Physical Therapy Treatment Plan Bed Mobility Training Transfer Training Gait Training Therapeutic Exercise Post Op Education Hot or Cold Pack Recommendations To Nursing Amount of Assist Needed 1 Person Assist Discharge Recommendations PT Discharge Recommendations Home with Assistance Outpatient PT
[2018-08-09] MEDS: ACETAMINOPHEN 325 MG TABLET 975 MG PO (09:55)
[2018-08-09] MEDS: LOSARTAN 50 MG TABLET 100 MG PO (09:56)
[2018-08-09] MEDS: ASPIRIN EC 81 MG TABLET PO (09:56)
[2018-08-09] MEDS: hydroCHLOROthiazide 25 MG TABLET PO (09:56)
[2018-08-09] MEDS: MELOXICAM 7.5 MG TABLET 15 MG PO (09:57)
--- NOTE | 2018-08-09 11:54 | PC.NURSE ---
Candice is taking oxycodone IR for pain mgmt., and is able to participate in PT. She is resting with legs elevated and utilizing ice packs to L knee. CMS intact. Jagdeep romna. clean/dry/intact. Spouse supportive in room. VSS. Anticipate disch. right after lunch in order to catch ferry to [facility]. She has ferry priority loading pass in hand. She states she has already filled her RXs.
== END 2018-08-09 13:00 | disposition home or self-care (01) ==
LOC: AC 08-09 10:45 → OR 08-09 14:22 → AC 08-09 14:23 → OR 08-09 14:24
PROVIDERS: Admitting Provider Orthopaedic Surgery; PCP Physician Assistant Medical; Visit Provider Orthopaedic Surgery
PROC: 0SRD0JZ Replacement of Left Knee Joint with Synthetic Substitute, Open Approach (ICD-10-PCS; CPT 27447; principal; 2018-08-07 11:15)
DX: M17.12 Unilateral primary osteoarthritis, left knee (principal); E03.9 Hypothyroidism, unspecified; G47.30 Sleep apnea, unspecified; E66.9 Obesity, unspecified; I10 Essential (primary) hypertension; E78.5 Hyperlipidemia, unspecified; E11.9 Type 2 diabetes mellitus without complications; Z79.84 Long term (current) use of oral hypoglycemic drugs; Z68.42 Body mass index [BMI] 45.0-49.9, adult
CPT/HCPCS: 27447; 36415; 73560; 82962; 85014; 85018; 94760; 97110; 97116; 97161; 97530; C1776; G0378; C9290; J0690; J1170; J2250; J2704; J3010

== ENCOUNTER → 2019-03-11 11:29 | Outpatient (CLI) | payer MEDICARE, SELFPAY ==
[2018-08-07 14:33] VITALS: BMI 44.3
--- NOTE | 2019-03-11 | DI.MRI.S_ITS ---
PROCEDURE: MR KNEE RT WO CON INDICATIONS: Unilateral primary osteoarthritis, right knee TECHNIQUE: Noncontrast sagittal PD fast spin echo and T2 fast spin echo with fat saturation, sagittal 3-D FLASH with fat saturation; coronal T1 spin echo and PD fast spin echo with fat saturation, and axial PD fast spin echo with fat saturation through the knee. COMPARISON: [facility], MR, MR KNEE LT WO CON, 07/03/2018, 8:52. FINDINGS: Image quality: Excellent. Menisci: There is medial extrusion of the medial meniscus. Amorphous high signal intensity within the anterior horn, body, and posterior horn medial meniscus is present, demonstrating superior and inferior articular surface extension, indicating degenerative tearing. Amorphous high signal within the lateral meniscus is present without articular surface extension, consistent with myxoid degeneration. Cruciate ligaments: The anterior and posterior cruciate ligaments are posterior cruciate ligament is intact. There is moderate posterior bowing of the anterior cruciate ligament. Medial structures: The medial collateral ligament appears intact. Visualized portions of the pes anserinus tendons appear normal. There is high-grade partial-thickness tearing of the distal semimembranosus tendon which demonstrates cystic transformation. Moderate medial bursal fluid. Lateral structures: The lateral collateral ligament, long and short heads of the biceps femoris tendon appear intact. The popliteus tendon appears normal. Iliotibial band appears normal. Anterior structures: The quadriceps and patellar tendons appear intact. Mild T2 signal elevation within the patellar tendon at the patellar insertion site. Patellar alignment is normal. No femoral trochlear dysplasia or ventral trochlear prominence. No edema in the infrapatellar fat pad. Bones and cartilage: No bone marrow contusions or fractures. There is mild subchondral degenerative marrow edema within the weightbearing aspect of the medial femoral condyle and medial tibial plateau. Severe tricompartmental periarticular osteophyte formation. Severe diffuse articular cartilage loss overlies the weightbearing aspects of the medial femoral condyle and medial tibial plateau. Mild diffuse articular cartilage loss overlies the weightbearing aspects of the lateral femoral condyle and lateral tibial plateau. Severe articular cartilage loss overlies the lateral patellar facet. Moderate articular cartilage loss overlies the medial patellar facet. Joint space: There is a moderate knee joint effusion and a trace Whelan's cyst. Multiple intra-articular loose bodies are present, largest of which is in the posterior central aspect of the knee joint measuring 20 mm diameter. Normal appearing synovial plicae are incidentally noted. IMPRESSION: 1. Severe tricompartmental arthritis with associated articular cartilage loss. 2. Knee joint effusion with multiple intra-articular loose bodies. 3. Medial meniscal extrusion and tearing. 4. High-grade tearing of the distal semimembranosus tendon which demonstrates cystic transformation. 5. Medial bursitis. 6. Partial-thickness anterior cruciate ligament tear. 7. Mild patellar tendinitis. Dictated by: Trevor Meredith M.D. on 03/11/2019 at 13:30 Approved by: Trevor Meredith M.D. on 03/11/2019 at 13:36
== END ==
PROVIDERS: PCP Nurse Practitioner Family; Visit Provider Orthopaedic Surgery
DX: M17.11 Unilateral primary osteoarthritis, right knee (principal); S83.241A Other tear of medial meniscus, current injury, right knee, initial encounter; S83.511A Sprain of anterior cruciate ligament of right knee, initial encounter; S76.811A Strain of other specified muscles, fascia and tendons at thigh level, right thigh, initial encounter; M25.461 Effusion, right knee; M76.51 Patellar tendinitis, right knee
CPT/HCPCS: 73721

== ENCOUNTER 2019-04-16 06:38 | Inpatient (IN) | payer MEDICARE, SELFPAY ==
[2018-08-07 14:33] VITALS: BMI 44.3
[2019-04-08 09:51] VITALS: BMI 45.1
[2019-04-16] VITALS (18 sets, daily range): BP systolic 102–161; BP diastolic 57–95; PULSE 57–85; RESP 15–118; TEMP 36–37.1; O2SAT 93–98; BMI 45.1
--- NOTE | 2019-04-16 06:00 | DI.RAD.S_ITS ---
PROCEDURE: XR KNEE RT 1TO2V INDICATIONS: TOTAL RIGHT KNEE TECHNIQUE: 2 views of the knee were acquired. COMPARISON: [facility], CR, XR KNEE LT 1TO2V, 08/07/2018, 13:58. FINDINGS: Bones: There are postsurgical changes of right total knee arthroplasty with hardware components in expected alignment. No ember-hardware loosening or fracture identified. Soft tissues: There is extensive soft tissue edema and soft tissue emphysema surrounding the right knee joint, consistent with postsurgical change. Cutaneous perry overlie the right knee anteriorly. IMPRESSION: Postsurgical changes of right total knee arthroplasty without evidence of acute hardware complication. Dictated by: Daniel Sellers M.D. on 04/16/2019 at 13:56 Approved by: Daniel Sellers M.D. on 04/16/2019 at 13:59
[2019-04-16] MEDS: LACTATED RINGERS 1,000 ML 42 ML IV ×2 (07:45→10:11)
[2019-04-16] MEDS: PREGABALIN 75 MG CAPSULE PO (08:22)
[2019-04-16] MEDS: ACETAMINOPHEN 325 MG TABLET 975 MG PO ×3 (08:22→20:49)
[2019-04-16] MEDS: ONDANSETRON 4 MG/2 ML INJ IV (08:42)
[2019-04-16] MEDS: INSULIN REGULAR 100 UNIT/ML 3 ML VIAL SUBCUT (08:49)
[2019-04-16] MEDS: fentaNYL 100 MCG/2 ML INJ 50 MCG IV (09:00)
[2019-04-16] MEDS: MIDAZOLAM 2 MG/2 ML VIAL IV (09:01)
--- NOTE | 2019-04-16 09:03 | PM.PREOP ---
Pre-operative Note Interval Note History & Physical reviewed/Exam performed by Physician: Yes Changes to H&P: No
--- NOTE | 2019-04-16 09:03 | PM.OP.1 ---
Operative Date/Time/Diagnoses Date of procedure: 04/16/19 Time of procedure: 10:48 Pre-op diagnosis: Right knee osteoarthritis Post-op diagnosis: same Procedure & Clinicians Procedure: Right total knee arthroplasty Same procedure as scheduled: Yes Indications: The patient presents today for total knee arthroplasty after failure of conservative treatment. The nature of the procedure including the risks and benefits, alternatives, postoperative course and expected outcome were discussed and all questions answered. Consent was obtained. Operative site confirmed and marked. Surgeon: Jose Guerrier Machine Fancy Stitcher: Kailey Xiao Anesthesia Type: Spinal, Peripheral nerve block and Local Operative Notes Findings: Patient had severe osteoarthritis with significant varus alignment and a a 20-25 degree flexion contracture. A +4 femoral cut was made in reference to the initial [employer] plan. The standard tibial cut was made. The knee balanced nicely but was left slightly looser in extension to allow a better chance for her to retain full extension. Closure Type: primary Specimen(s): none sent Prosthetic devices, grafts, tissues, transplants, or devices: Llamas and Nephew Lizzie BCS: 5 femoral component, 3 tibial component, 9 mm BCS polyethylene tray and 32 x 7.5 mm round patella Applied: implant(s) Estimated Blood Loss (mL): 10 Blood products transfused: none Tourniquet time (min): 63 Procedure in detail: The patient was taken to the operative suite and placed under spinal anesthesia with an adductor nerve block. The patient was given prophylactic antibiotics prior to surgery. The patient was also given tranexamic acid, 1 g, just prior to surgery for postoperative hemostasis. The lateral knee was prepped and the joint injected with 20 mL of 1% Lidocaine with epinephrine. The knee was then prepped and draped in usual sterile fashion. The leg was exsanguinated with an Esmarch dressing and the tourniquet raised to 300 torr. A 15 cm anterior incision was made. Next a medial trivector arthrotomy was made. The extensor mechanism was marked to ensure accurate repair. Initial exposing dissection was carried out medially and laterally. The knee was then flexed and the femoral guide template placed. The distal femoral cut at the +4 position. The femoral size was measured and the appropriate cutting block was then placed and the anterior, posterior and chamfer cuts made. The tibial guide template was placed. The the cut was set to remove approximately 12 mm from the less affected lateral side. The proximal tibial cut was then made with an oscillating saw. All meniscus and bony debris was then removed. Posterior femoral osteophytes removed with a curved osteotome. Flexion extension gaps were checked. No specific balancing was required other than routine exposure and removal of osteophytes. The soft tissues were then injected with a combination of 20 mL of half percent Marcaine with epinephrine and 20 mL of Exparel. The trial components were then placed. The knee was then extended and the patellar thickness was measured and a cut made removing approximately 7-8 mm of bone. The patella was then sized and drilled. Some excess lateral bone was excised and the patellofemoral ligament released. The knee went into full extension and flexion beyond 120?. There was excellent medial-lateral balance throughout motion. The knee was left slightly looser in extension to ensure that she does get full extension given her preoperative flexion contracture. Patellar tracking was excellent. The trial components were removed and the knee was cleansed with Pulsavac irrigation and dried. The final components were cemented with high viscosity vacuum mixed bone cement with antibiotics. The joint was filled with a dilute Betadine solution. The knee was held in extension and the patellar clamped until the cement was adequately cured. The knee was then irrigated. The extensor mechanism was closed with 5 interrupted #1 Vicryl sutures and a running Quill suture at approximately 90 degrees of flexion. The joint was then injected with a combination of 1 g of tranexamic acid and 20 mL of quarter percent Marcaine with epinephrine. The subcutaneous tissue was closed with 2 0 Vicryl. The skin was closed with perry and surgical adhesive. An delores dressing and Elmer wrap were then applied. The patient tolerated the procedure well and was returned to recovery room in good condition. Complications: none Post-operative Condition: stable Disposition: PACU Plan for aftercare: [facility] protocol for total knee arthroplasty.
[2019-04-16] MEDS: CEFAZOLIN 2 GM/100 ML FROZ.PIGGY IV (09:18)
--- NOTE | 2019-04-16 09:19 | SUR.PREOP ---
Block start time [0857] . Monitoring initiated and maintained throughout procedure. Oxygen and medications given per anesthesiologist instructions. Patient remained stable throughout procedure, no adverse reactions noted. Block end time [0910].
--- NOTE | 2019-04-16 09:19 | SUR.PREOP ---
Pt to OR with GE Chapa and in stable condition.
[2019-04-16] MEDS: LIDOCAINE 1% W/EPI 20 ML INJ (09:25)
[2019-04-16] MEDS: TRANEXAMIC ACID 1,000 MG VIAL 1000 MG INJ (09:35)
[2019-04-16] MEDS: BUPIVACAINE 0.25% W/ EPI (PF) 40 ML, BUPIVACAINE LIPOSOME 266 MG, SODIUM CHLORIDE 0.9% ... INJ (10:09)
[2019-04-16] MEDS: BUPIVACAINE 0.25% W/ EPI (PF) 20 ML, TRANEXAMIC ACID 1,000 MG, SODIUM CHLORIDE 0.9% 10 ML INJ (10:14)
[2019-04-16] MEDS: SODIUM CHLORIDE IRRIG SOLUTION 250 ML, POVIDONE-IODINE SPONGE STICKS 1 APPLIC IRR (10:18)
[2019-04-16] MEDS: INSULIN REGULAR 100 UNIT/ML 3 ML VIAL 6 UNIT SUBCUT (11:27)
--- NOTE | 2019-04-16 12:09 | SUR.PHASEI ---
1156 To room 217, bed down and locked, call light within reach, A&O, clothing bag and CPAP to the room. Report updated, SCD''s on. Stable, no pain/nausea.
[2019-04-16] MEDS: LACTATED RINGERS 1,000 ML 125 ML IV ×2 (12:20→22:06)
--- NOTE | 2019-04-16 12:49 | PC.NURSE ---
1205 Pt ,arrived from PACU via bed. Pt awake, A & O x 3. SL patent L hand, Pt on R/A, sats 97%. SCDs on ble.
[2019-04-16] MEDS: OXYCODONE IR 5 MG TABLET 10 MG PO ×3 (13:06→21:10)
[2019-04-16] MEDS: IBUPROFEN 400 MG TABLET PO ×3 (13:07→20:48)
[2019-04-16] MEDS: hydrOXYzine pamoate 25 MG CAPSULE PO (14:20)
--- NOTE | 2019-04-16 15:10 | PT.IIE ---
Current Diagnoses Bilateral primary osteoarthritis of knee (04/16/19) Surgery Performed Operation Date: 04/16/19 08:45 Actual Procedures p Total Knee Arthroplasty(Right) - Jose Guerrier MD Surgical History (Last Updated 07/29/18 @ 10:29 by Lissteh Storey RN) Hx of arthroscopy of left knee (Acute) Hx of arthroscopy of right knee (Acute ~2004) Hx of dilation and curettage (Acute) S/P LASIK surgery of both eyes (Acute ~2004) S/P wrist surgery (Acute ~2011) Medical History (Last Updated 07/29/18 @ 10:29 by Lisseth Storey RN) Anxiety (Acute) Diabetes (Acute) Edema (Acute) Fatty liver determined by biopsy (Acute ~2009) HTN (hypertension) (Acute) Hx of ectopic (Acute) Hyperlipidemia (Acute) Hypothyroid (Acute) BARBARA on CPAP (Acute) PMR (polymyalgia rheumatica) (Acute ~2007) Tonsil stone (Acute) Umbilical hernia (Acute) UTI (urinary tract infection) (Acute 07/09/18) Physical Therapy Inpatient Evaluation/Re-Eval M1 PT/OT-IP Prior Functional Status Start: 04/16/19 16:18 Freq: NEEDED Status: Active Protocol: Document 04/16/19 15:10 AB (Rec: 04/16/19 16:38 AB [id number]) Medical Review Prior Functional Status Medical History Reviewed Yes Communication able to make needs known Mobility and Gait Pt stated that she is independent with all mobilities and ambulation without AD but uses 2 walking poles for long distance ambulation. Social History Household Members significant other Living Arrangements House Number of Floors (Floors) Two Floors Number of Stairs To Enter/Railing? 5 steps to enter with R rail ascending 14 steps with R rail ascending to bedroom level Home Environment Standard Height Toilet,Tub/ Shower Home Equipment Front Wheel Walker,Bedside Commode,Shower Seat with Backrest,Hand Held Shower,Grab Bars In Shower Employment Status Retired Additional Social History Comment pt has walking poles M2 PT-IP Current Condition Start: 04/16/19 16:18 Freq: NEEDED Status: Active Protocol: Document 04/16/19 15:10 AB (Rec: 04/16/19 16:38 AB [id number]) Physical Therapy Current Condition Current Condition Evaluation Date 04/16/19 Treatment Diagnosis s/p r TKA; difficulty in walking Onset Date 04/16/19 Weight Bearing Status Weight Bearing Status Weight Bear as Tolerated Allowed Weight Bearing Amount (enter % RLE WBAT or #) (%) M3 PT-IP Subjective Start: 04/16/19 16:18 Freq: NEEDED Status: Active Protocol: Document 04/16/19 15:10 AB (Rec: 04/16/19 16:38 AB [id number]) Subjective Physical Therapy Visit Type Type Initial Evaluation Visit Start Time 15:10 Visit Stop Time 15:50 Total Visit Minutes 40 Number of GREEN END WORKER Visits 0 Physical Therapy Visit Comments Patient Comments pt agreeable to do PT; requested to use the bedside commode Therapy Pain Assessment Pain When Pain Assessed At Rest Pain Present Pain Present Pain Reported Location Left Knee Intensity 8 Scale Used Numeric (1 - 10) Pain Management Techniques Apply Cold,Modification of Treatment,Re-positioning, Timing of Activity with Medications M4 PT-IP Mobility and Gait Start: 04/16/19 16:18 Freq: NEEDED Status: Active Protocol: Document 04/16/19 15:10 AB (Rec: 04/16/19 16:38 AB [id number]) PT-Bed Mobility Assessment Supine to Sit Supine to Sit Minimal Assistance,1 Person Assistance Sit to Supine Sit to Supine Minimal Assistance,1 Person Assistance PT-Transfer Assessment Sit to and From Stand Sit to and from Stand Moderate Assistance,1 Person Assistance,Use of Upper Extremities Equipment Transfer Assistive Device Bed Rail,Front Wheeled Walker Orthotic/Prosthetic Devices or Brace: No Transfers Transfer Destination Bedside Commode Transfer Technique Stand Step Pivot Transfer Ability Level of Assist Moderate Assistance,1 Person Assistance,Use of Upper Extremities Comments Mobility Comments BP in supine: 127/71. pt completed supine to sit min A and cues. requires initial CGA for sitting balance but able to maintain with SBA after repositioning. BP sittin/77. completed sit to stand mod A and cues and completed stand step transfer using FWW mod A and cues. pt presents with slight increase in knee flexion during weight bearing and requires cues for R quad activation for stability and safety. pt was able to complete sit to stand from bedside commode mod A and cues. pt was able to maintain standing min A while completing hygiene care. pt agreed to ambulation and completed in room and requested to go back to bed afterwards. completed sit to supine min and cues. positioned pt in bed. call light and table placed within reach. left pt with spouse in room. Gait Assessment Gait Gait Assistance Required: Moderate Assistance Distance (Feet) 15 Able to Maintain Weight Bearing Status Yes During Gait Assistive Devices Assistive Device Gait Belt,Front Wheeled Walker Orthotic/Prosthetic Devices or Brace: No Gait Deviations General Gait Pattern Antalgic,Decreased Stride Length,Decreased Feet Clearance,Step-to Gait Factors Limiting Gait Function Factors Limiting Gait Function Decreased Activity Tolerance, Decreased Strength,Limited Range of Motion,Pain,Poor Balance,Poor Safety Awareness PT-Balance Assessment Sitting Balance and Reactions Static Sitting Balance Ability Good Dynamic Sitting Balance Ability Good Standing Balance and Reactions Static Standing Balance Ability Fair Dynamic Standing Balance Ability Fair Device Used FWW M5 PT-IP Objective Assessments Start: 04/16/19 16:18 Freq: NEEDED Status: Active Protocol: Document 04/16/19 15:10 AB (Rec: 04/16/19 16:38 AB [id number]) Orientation Orientation/Cognition Level of Alertness Alert Orientation Name,Place,Situation Language Function Ability No Deficits Noted Safety Awareness Understands Safety Issues Memory Description No Deficits Noted Gross Range of Motion Lower Extremity ROM Assessment Right Impaired Impairments R knee flexion: ~ 70 deg Strength Lower Extremity Strength Assessment Right Impaired Hip 3+/5 Knee 3+/5 M6 PT-IP Treatment Start: 04/16/19 16:18 Freq: NEEDED Status: Active Protocol: Document 04/16/19 15:10 AB (Rec: 04/16/19 16:38 AB [id number]) Physical Therapy Treatment Exercises Exercises Heel Slides Education Education Provided Precautions,Weight Bearing Status,Post-Op Packet,Safety M7 PT-IP Assessment and Plan Start: 04/16/19 16:18 Freq: NEEDED Status: Active Protocol: Document 04/16/19 15:10 AB (Rec: 04/16/19 16:38 AB [id number]) PT Summary Assessment and Plan Potential Rehabilitation Potential Good Status of Condition at Evaluation Stable Summary Impairments Pain,ROM,Strength,Balance,Bed Mobility,Transfers,Gait, Activity Tolerance Assessment Summary pt requires mod A with mobility. pt plans to go home and spouse to assist her. d/ c plan depending on progress. will conduct caregiver training when appropriate and will also conduct stair climbing training prior to d/c . pt is set up for outpt PT per pt. Goals Bed Mobility Goal Standby Assistance Transfer Goal Standby Assistance,Front Wheeled Walker Gait Goal Standby Assistance,Front Wheel Walker Gait Distance 150 Other Goals up/down 15 steps R rail ascending SBA Days to Meet Goals 5 Frequency of Treatment Frequency Of Treatment Twice a Day Treatment Plan Physical Therapy Treatment Plan Bed Mobility Training,Transfer Training,Gait Training, Therapeutic Exercise,Balance Retraining,Post Op Education, Discharge Planning,Hot or Cold Pack,Neuromuscular Re-ed, Coordination Retraining,Manual Therapy Other Recommendations and Next Treatment ambulation, stair climbing, Focus caregiver training when appropriate Recommendations To Nursing Amount of Assist Needed 1 Person Assist Discharge Recommendations PT Discharge Recommendations Home with Assistance, Outpatient PT
[2019-04-16] MEDS: CEFAZOLIN VIAL 3 GM in SODIUM CHLORIDE 0.9% 100 ML 200 ML IV (16:36)
[2019-04-16] MEDS: METFORMIN HCL 500 MG TABLET 1000 MG PO (20:45)
[2019-04-16] MEDS: AMLODIPINE 5 MG TABLET 10 MG PO (20:45)
[2019-04-16] MEDS: ROSUVASTATIN 10 MG TABLET 5 MG PO (20:46)
[2019-04-16] MEDS: ASPIRIN EC 81 MG TABLET PO (20:48)
[2019-04-16] MEDS: METOPROLOL ER 50 MG TABLET 100 MG PO (20:48)
--- NOTE | 2019-04-16 22:36 | PC.NURSE ---
A&OX4, 96% RA. pain controlled with oxycodone. CMS+, PP++. pt ambulated to the BR w/fww. dressing cdi. call light in reach.
[2019-04-17] MEDS: IBUPROFEN 400 MG TABLET PO ×4 (00:07→12:46)
[2019-04-17] MEDS: hydrOXYzine pamoate 25 MG CAPSULE PO ×2 (00:08→12:48)
[2019-04-17 00:20] VITALS: BP 120/65; PULSE 75; RESP 16; TEMP 36.3; O2SAT 95
[2019-04-17] MEDS: CEFAZOLIN VIAL 3 GM in SODIUM CHLORIDE 0.9% 100 ML 200 ML IV (00:44)
[2019-04-17] MEDS: OXYCODONE IR 5 MG TABLET 10 MG PO ×3 (02:10→11:01)
[2019-04-17 05:42] LABS: Hematocrit 27.4 % (36-46); Hemoglobin 9.6 g/dL (12.0-16.0)
[2019-04-17 05:49] VITALS: BP 133/72; PULSE 68; RESP 16; TEMP 36.3; O2SAT 95
[2019-04-17] MEDS: LEVOTHYROXINE 100 MCG TABLET PO (05:54)
[2019-04-17] MEDS: LEVOTHYROXINE 75 MCG TABLET PO (05:54)
[2019-04-17 08:00] VITALS: BP 157/88; PULSE 73; RESP 18; TEMP 37.2; O2SAT 92
[2019-04-17] MEDS: hydroCHLOROthiazide 25 MG TABLET PO (08:11)
[2019-04-17] MEDS: METFORMIN HCL 500 MG TABLET 1000 MG PO (08:11)
[2019-04-17] MEDS: ACETAMINOPHEN 325 MG TABLET 975 MG PO (08:11)
[2019-04-17] MEDS: LOSARTAN 50 MG TABLET 100 MG PO (08:12)
[2019-04-17] MEDS: SODIUM CHLORIDE 0.9% FLUSH 10 ML IV (08:18)
[2019-04-17] MEDS: GLIMEPIRIDE 2 MG TABLET 4 MG PO (08:18)
[2019-04-17] MEDS: ASPIRIN EC 81 MG TABLET PO (08:18)
--- NOTE | 2019-04-17 09:24 | PT.IPTN ---
Current Diagnoses Bilateral primary osteoarthritis of knee (04/16/19) Surgery Performed Operation Date: 04/16/19 08:45 Actual Procedures p Total Knee Arthroplasty(Right) - Jose Guerrier MD Physical Therapy Treatment Note M2 PT-IP Current Condition Start: 04/16/19 16:18 Freq: NEEDED Status: Active Protocol: Document 04/16/19 15:10 AB (Rec: 04/16/19 16:38 AB [id number]) Physical Therapy Current Condition Current Condition Evaluation Date 04/16/19 Treatment Diagnosis s/p r TKA; difficulty in walking Onset Date 04/16/19 Weight Bearing Status Weight Bearing Status Weight Bear as Tolerated Allowed Weight Bearing Amount (enter % RLE WBAT or #) (%) M3 PT-IP Subjective Start: 04/16/19 16:18 Freq: NEEDED Status: Active Protocol: Document 04/16/19 15:10 AB (Rec: 04/16/19 16:38 AB [id number]) Subjective Physical Therapy Visit Type Type Initial Evaluation Visit Start Time 15:10 Visit Stop Time 15:50 Total Visit Minutes 40 Number of WAREHOUSE HANDLER Visits 0 Physical Therapy Visit Comments Patient Comments pt agreeable to do PT; requested to use the bedside commode Therapy Pain Assessment Pain When Pain Assessed At Rest Pain Present Pain Present Pain Reported Location Left Knee Intensity 8 Scale Used Numeric (1 - 10) Pain Management Techniques Apply Cold,Modification of Treatment,Re-positioning, Timing of Activity with Medications M4 PT-IP Mobility and Gait Start: 04/16/19 16:18 Freq: NEEDED Status: Active Protocol: Document 04/16/19 15:10 AB (Rec: 04/16/19 16:38 AB [id number]) PT-Bed Mobility Assessment Supine to Sit Supine to Sit Minimal Assistance,1 Person Assistance Sit to Supine Sit to Supine Minimal Assistance,1 Person Assistance PT-Transfer Assessment Sit to and From Stand Sit to and from Stand Moderate Assistance,1 Person Assistance,Use of Upper Extremities Equipment Transfer Assistive Device Bed Rail,Front Wheeled Walker Orthotic/Prosthetic Devices or Brace: No Transfers Transfer Destination Bedside Commode Transfer Technique Stand Step Pivot Transfer Ability Level of Assist Moderate Assistance,1 Person Assistance,Use of Upper Extremities Comments Mobility Comments BP in supine: 127/71. pt completed supine to sit min A and cues. requires initial CGA for sitting balance but able to maintain with SBA after repositioning. BP sittin/77. completed sit to stand mod A and cues and completed stand step transfer using FWW mod A and cues. pt presents with slight increase in knee flexion during weight bearing and requires cues for R quad activation for stability and safety. pt was able to complete sit to stand from bedside commode mod A and cues. pt was able to maintain standing min A while completing hygiene care. pt agreed to ambulation and completed in room and requested to go back to bed afterwards. completed sit to supine min and cues. positioned pt in bed. call light and table placed within reach. left pt with spouse in room. Gait Assessment Gait Gait Assistance Required: Moderate Assistance Distance (Feet) 15 Able to Maintain Weight Bearing Status Yes During Gait Assistive Devices Assistive Device Gait Belt,Front Wheeled Walker Orthotic/Prosthetic Devices or Brace: No Gait Deviations General Gait Pattern Antalgic,Decreased Stride Length,Decreased Feet Clearance,Step-to Gait Factors Limiting Gait Function Factors Limiting Gait Function Decreased Activity Tolerance, Decreased Strength,Limited Range of Motion,Pain,Poor Balance,Poor Safety Awareness PT-Balance Assessment Sitting Balance and Reactions Static Sitting Balance Ability Good Dynamic Sitting Balance Ability Good Standing Balance and Reactions Static Standing Balance Ability Fair Dynamic Standing Balance Ability Fair Device Used FWW M5 PT-IP Objective Assessments Start: 04/16/19 16:18 Freq: NEEDED Status: Active Protocol: Document 04/16/19 15:10 AB (Rec: 04/16/19 16:38 AB [id number]) Orientation Orientation/Cognition Level of Alertness Alert Orientation Name,Place,Situation Language Function Ability No Deficits Noted Safety Awareness Understands Safety Issues Memory Description No Deficits Noted Gross Range of Motion Lower Extremity ROM Assessment Right Impaired Impairments R knee flexion: ~ 70 deg Strength Lower Extremity Strength Assessment Right Impaired Hip 3+/5 Knee 3+/5 M6 PT-IP Treatment Start: 04/16/19 16:18 Freq: NEEDED Status: Active Protocol: Document 04/16/19 15:10 AB (Rec: 04/16/19 16:38 AB [id number]) Physical Therapy Treatment Exercises Exercises Heel Slides Education Education Provided Precautions,Weight Bearing Status,Post-Op Packet,Safety M7 PT-IP Assessment and Plan Start: 04/16/19 16:18 Freq: NEEDED Status: Active Protocol: Document 04/16/19 15:10 AB (Rec: 11/20/19 16:38 AB [id number]) PT Summary Assessment and Plan Potential Rehabilitation Potential Good Status of Condition at Evaluation Stable Summary Impairments Pain,ROM,Strength,Balance,Bed Mobility,Transfers,Gait, Activity Tolerance Assessment Summary pt requires mod A with mobility. pt plans to go home and spouse to assist her. d/ c plan depending on progress. will conduct caregiver training when appropriate and will also conduct stair climbing training prior to d/c . pt is set up for outpt PT per pt. Goals Bed Mobility Goal Standby Assistance Transfer Goal Standby Assistance,Front Wheeled Walker Gait Goal Standby Assistance,Front Wheel Walker Gait Distance 150 Other Goals up/down 15 steps R rail ascending SBA Days to Meet Goals 5 Frequency of Treatment Frequency Of Treatment Twice a Day Treatment Plan Physical Therapy Treatment Plan Bed Mobility Training,Transfer Training,Gait Training, Therapeutic Exercise,Balance Retraining,Post Op Education, Discharge Planning,Hot or Cold Pack,Neuromuscular Re-ed, Coordination Retraining,Manual Therapy Other Recommendations and Next Treatment ambulation, stair climbing, Focus caregiver training when appropriate Recommendations To Nursing Amount of Assist Needed 1 Person Assist Discharge Recommendations PT Discharge Recommendations Home with Assistance, Outpatient PT
--- NOTE | 2019-04-17 09:24 | PT.IPTN ---
This is to certify that I have reviewed this documentation and is involved with this pt's care. Current Diagnoses Bilateral primary osteoarthritis of knee (04/16/19) Surgery Performed Operation Date: 04/16/19 08:45 Actual Procedures p Total Knee Arthroplasty(Right) - Jose Guerrier MD Physical Therapy Treatment Note M2 PT-IP Current Condition Start: 04/16/19 16:18 Freq: NEEDED Status: Active Protocol: Document 04/16/19 15:10 AB (Rec: 04/16/19 16:38 AB [id number]) Physical Therapy Current Condition Current Condition Evaluation Date 04/16/19 Treatment Diagnosis s/p r TKA; difficulty in walking Onset Date 04/16/19 Weight Bearing Status Weight Bearing Status Weight Bear as Tolerated Allowed Weight Bearing Amount (enter % RLE WBAT or #) (%) M3 PT-IP Subjective Start: 04/16/19 16:18 Freq: NEEDED Status: Active Protocol: Document 04/17/19 09:24 MT (Rec: 04/17/19 11:11 MT [email or web address]) Subjective Physical Therapy Visit Type Type Treatment Note Visit Start Time 09:24 Visit Stop Time 09:55 Total Visit Minutes 31 Notes Treatment supervised by Makayla Morales PT Number of DRAFTING LAYOUT MAN Visits 0 Physical Therapy Visit Comments Patient Comments pt agreeable to participate in PT session Therapy Pain Assessment Pain When Pain Assessed At Rest Pain Present Pain Present Pain Reported Location Left Knee Intensity 5 Scale Used Numeric (1 - 10) Pain Management Techniques Apply Cold,Modification of Treatment,Re-positioning, Timing of Activity with Medications M4 PT-IP Mobility and Gait Start: 04/16/19 16:18 Freq: NEEDED Status: Active Protocol: Document 04/17/19 09:24 MT (Rec: 04/17/19 11:11 MT [email or web address]) PT-Bed Mobility Assessment Supine to Sit Supine to Sit Contact Guard Assistance,1 Person Assistance,Head of Bed Elevated Sit to Supine Sit to Supine Contact Guard Assistance,1 Person Assistance Scooting Scooting to Edge of Bed Contact Guard Assistance PT-Transfer Assessment Sit to and From Stand Sit to and from Stand Contact Guard Assistance, Minimal Assistance,1 Person Assistance,Use of Upper Extremities Equipment Transfer Assistive Device Gait Belt,Front Wheeled Walker Orthotic/Prosthetic Devices or Brace: No Transfers Transfer Destination Bed,Toilet Transfer Technique sit to stand to initiate walking Transfer Ability Level of Assist Minimal Assistance,1 Person Assistance,Use of Upper Extremities Comments Mobility Comments Pt found in bed. Pt completed bed mobilty with CGA and was able to manage her R leg during the bed mobility without much cueing. Pt performed sit to stand with 2WW and Mary Ellen and initiated ambulation. Pt performed sit< >stand CGA and 2WW onto toilet . Following ambulation, pt performed stand to sit with Mary Ellen and caregiver training was conducted with for proper use of gait belt. Pt was able to apply belt with cues provided by pt. Pt positioned back in bed with call light in reach and given ice for her knee. Gait Assessment Gait Gait Assistance Required: Minimum Assistance Distance (Feet) 90 Able to Maintain Weight Bearing Status Yes During Gait Assistive Devices Assistive Device Gait Belt,Front Wheeled Walker Orthotic/Prosthetic Devices or Brace: No Gait Deviations General Gait Pattern Antalgic,Decreased Stride Length,Decreased Feet Clearance,Step-to Gait Factors Limiting Gait Function Factors Limiting Gait Function Decreased Activity Tolerance, Decreased Strength,Limited Range of Motion,Pain,Poor Balance,Poor Safety Awareness Comments Gait Comments Pt ambulated 90ft within room and hallway using 2WW and Mary Ellen . She required some cueing for tightening her quads to ensure her R leg was stable and to push through walker to take weight off R LE to toleration. Stair Climbing Assessment Evaluation Level of Assist On Stairs Minimal Assistance,1 Person Assistance Devices Stair Climbing Assistive Devices Right Railing Technique/Endurance Stair Climbing Direction Ascend and Descend Stair Climbing Technique Step to Step Number of Steps Climbed 6 Stair Climbing Set # Repetitions (reps) 1 Comments Stair Climbing Comments Pt ascend/descend 8 stairs Mary Ellen with cueing for safety and sequncing of steps. Pt turned sideways to use the R handrail with both hands. caregiver training conducted with for how to handle pt with gait belt and where to stand to assist pt. Caregiver was able to provide enough level of assistance to the pt. M5 PT-IP Objective Assessments Start: 04/16/19 16:18 Freq: NEEDED Status: Active Protocol: Document 04/16/19 15:10 AB (Rec: 04/16/19 16:38 AB [id number]) Orientation Orientation/Cognition Level of Alertness Alert Orientation Name,Place,Situation Language Function Ability No Deficits Noted Safety Awareness Understands Safety Issues Memory Description No Deficits Noted Gross Range of Motion Lower Extremity ROM Assessment Right Impaired Impairments R knee flexion: ~ 70 deg Strength Lower Extremity Strength Assessment Right Impaired Hip 3+/5 Knee 3+/5 M6 PT-IP Treatment Start: 04/16/19 16:18 Freq: NEEDED Status: Active Protocol: Document 04/17/19 09:24 MT (Rec: 04/17/19 11:11 MT [email or web address]) Physical Therapy Treatment Education Education Provided Safety M7 PT-IP Assessment and Plan Start: 04/16/19 16:18 Freq: NEEDED Status: Active Protocol: Document 04/17/19 09:24 MT (Rec: 04/17/19 11:11 MT [email or web address]) PT Summary Assessment and Plan Potential Rehabilitation Potential Good Status of Condition at Evaluation Stable Summary Impairments Pain,ROM,Strength,Balance,Bed Mobility,Transfers,Gait, Activity Tolerance Assessment Summary Pt has progressed with level of assistance for bed mobility , trasnfers, and gait. She stated that she will be sleeping in a recliner at home . She requires overall less cues for safety. Caregiver training was conducted with for how to assist pt with stairs and apply gait belt. Pt performed stair training and was able to safely navigate stairs with 's assistance. Pt is appropriate for discharge home with assistance from and outpatient PT. Goals Bed Mobility Goal Standby Assistance Transfer Goal Standby Assistance,Front Wheeled Walker Gait Goal Standby Assistance,Front Wheel Walker Gait Distance 150 Other Goals up/down 15 steps R rail ascending SBA Days to Meet Goals 5 Frequency of Treatment Frequency Of Treatment Twice a Day Treatment Plan Physical Therapy Treatment Plan Bed Mobility Training,Transfer Training,Gait Training, Therapeutic Exercise,Balance Retraining,Post Op Education, Discharge Planning,Hot or Cold Pack,Neuromuscular Re-ed, Coordination Retraining,Manual Therapy Recommendations To Nursing Amount of Assist Needed 1 Person Assist Discharge Recommendations PT Discharge Recommendations Home with Assistance, Outpatient PT
--- NOTE | 2019-04-17 09:32 | PM.DS.1 ---
History of Present Illness History of Present Illness Date Patient Seen: 04/17/19 Time Patient Seen: 08:00 Chief complaint: [id number] Narrative: The patient presents today for total knee arthroplasty after failure of conservative treatment. The nature of the procedure including the risks and benefits, alternatives, postoperative course and expected outcome were discussed and all questions answered. Consent was obtained. Operative site confirmed and marked. POD 1 s/p right total knee arthroplasty with Dr. Guerrier. No acute events overnight. Patient doing well with no complaints. Pain well managed with oxycodone. Mobilizing with PT. Patient denies fever, chills, shortness of breath, chest pain, calf pain. Discharge Providers Provider Date of admission: 04/16/19 06:38 Discharge Date: 04/17/19 Primary care physician: VLAD Mallory Consults: 04/16/19 10:11 Consult to Physician Routine Comment: consult to primary care provider for followup Consulting Provider: *Temp,ED* Reason for consultation: Positive STOP BANG, management of obstructive sleep apnea Has provider been notified: No 04/16/19 12:12 Consult to Discharge Planning Routine Comment: Consult to Physical Therapy Evaluate & Treat Comment: Physician Instructions: postop TKA protocol Consult to Respiratory Therapy Evaluate & Treat Comment: Physician Instructions: Evaluate and treat Discharge provider: Venice Antunez PA-C Summary Hospital Course Discharge Diagnosis: s/p right total knee arthroplasty mild post operative anemia anxiety diabetes edema fatty liver determined by biopsy ectopic hyperlipidemia hypothyroid BARBARA on CPAP polymyalgia rheumatica tonsil stones umbilical hernia urinary tract infection Hospital Course: Patient admitted to hospital s/p right total knee arthroplasty with Dr. Guerrier. Hospital course was unremarkable. Post op day 1 patient was ready for discharge home with assistance. Patient was mobilizing with PT prior to discharge. Patient was voiding and eating without difficulty or assistance prior to discharge. Pain was well managed prior to discharge and patient has prescription for oxycodone at home. ASA 81 mg BID for DVT prophylaxis. Outpatient PT scheduled. Status at Discharge Cognitive/behavioral status at discharge: oriented Functional status at discharge: uses cane/walker Overall status at discharge: patient is progressing back to baseline Time Spent with Patient Time spent: Less than 30 minutes Exam Vital Signs (past 8 hours): - 04/17/19 05:49 04/17/19 08:00 Temperature 97.4 F L 99.0 F Pulse Rate 68 73 Respiratory Rate 16 18 Blood Pressure 133/72 157/88 H Pulse Oximetry 95 92 Oxygen Delivery Method Room Air Oxygen Flow Rate 0 Narrative Exam Narrative: 59 year old female is sitting comfortably in bed, in no apparent distress. A&Ox3. NERY dressing functioning and CDI on R knee. Elmer wrap in place. Sensory function grossly intact to light touch in LE bl. Calves warm, soft, compressible, nttp bl. Patient able to actively dorsiflex/plantar flex. Dorsalis pedis 2+ bl. Capillary refill <2sec LE bl. Objective Labs Result Diagrams: 04/17/19 05:28 Labs: Laboratory Results - last 24 hr 04/17/19 05:28 Hgb 9.6 L Hct 27.4 L Discharge Plan Discharge Plan Patient Disposition: Home Discharge comment: discharge pending PT clearance Discharge orders & Medications Prescriptions: New aspirin 81 mg tablet,delayed release (DR/EC) 81 mg PO BID Qty: 60 RF: 0 acetaminophen [Tylenol Extra Strength] 500 mg tablet 500 mg PO Q4H PRN (Reason: pain (scale score 1-3)) Qty: 60 RF: 0 Continued meloxicam 15 mg Tablet 15 mg PO DAILY RF: 0 metoprolol succinate 100 mg Tablet Extended Release 24 Hr 100 mg PO BEDTIME RF: 0 amlodipine [Norvasc] 10 mg Tablet 10 mg PO BEDTIME RF: 0 metformin 1,000 mg Tablet 1,000 mg PO BID RF: 0 hydrochlorothiazide 25 mg Tablet 25 mg PO QAM RF: 0 losartan 100 mg Tablet 100 mg PO QAM RF: 0 rosuvastatin [Crestor] 5 mg Tablet 5 mg PO BEDTIME RF: 0 levothyroxine 175 mcg Capsule 175 mcg PO DAILY RF: 0 melatonin 5 mg Tablet 5 mg PO BEDTIME PRN (Reason: Sleep) RF: 0 cyclobenzaprine 10 mg Tablet 10 mg PO TID PRN (Reason: Spasms) RF: 0 glimepiride 4 mg Tablet 4 mg PO QAM RF: 0 zolpidem 10 mg Tablet 10 mg PO BEDTIME PRN (Reason: Sleep) RF: 0 Discontinued oxycodone 5 mg Tablet 5 mg PO Q3HR PRN (Reason: Pain, Moderate (4-6)) Qty: 0 RF: 0 acetaminophen [Tylenol Arthritis Pain] 650 mg Tablet Extended Release 1,300 mg PO BID PRN (Reason: Pain) RF: 0 aspirin 81 mg tablet,delayed release (DR/EC) 81 mg PO QAM RF: 0 Follow up/Referrals: Denise Uriarte ARNP [Primary Care Provider] - Jose Guerrier MD [Physician] - Discharge Health Status Multidrug resistant organism: No MDRO Diet/Activity/Treatments Diet: Carb-consistent/Diabetic Activity: weight bearing as tolerated. follow morgan path total knee arthroplasty precautions Cold/Heat Therapy: continue cold/heat therapy as needed Skin/Wound/Dressing Care Report to your healthcare provider any signs of infection, such as:: chills, fever, increased pain, unusual drainage and unusual redness Dressing: keep dressing dry. can use NERY in shower. if saturated, contact the office for a dressing change. Visit Report/Discharge Packet Instructions: DI for Knee Replacement Stand Alone Forms: Surgery Discharge Discharge Data Primary Care Provider: Denise Uriarte
[2019-04-17 11:10] VITALS: BP 156/86; PULSE 72; RESP 15; TEMP 35.6; O2SAT 94
--- NOTE | 2019-04-17 13:45 | PC.NURSE ---
Patient discharged to home with . States she has follow up appointment scheduled. Patient has NERY dressing in place, remains CDI. Patient states she understands discharge teaching and has no further questions or concerns at this time. Patient was escorted out via wheelchair with all belongings by student nurse.
--- NOTE | 2019-04-17 13:54 | CM.IDA ---
Initial DCP Assessment Note: Pt is a 59 yo female, resident of [place], now POD#1 from total knee surgery w/ Dr Guerrier PCP: Denise Uriarte Payer: Medicare Reviewed chart, pt discussed in multidisciplinary rounds this morning. Therapy has cleared pt for return home w/family to assist and pt has planned for home, DC order from [facility] has already been initiated this morning. No needs from DCP team identified. Pt/spouse eager to [place] and [place] ferry [place] their [place] home today. IVELISSE Mane
== END 2019-04-17 13:50 | disposition home or self-care (01) | DRG 470 ==
PROVIDERS: Admitting Provider Orthopaedic Surgery; PCP Nurse Practitioner Family; Visit Provider Orthopaedic Surgery
PROC: 0SRC0JZ Replacement of Right Knee Joint with Synthetic Substitute, Open Approach (ICD-10-PCS; CPT 27447; principal; 2019-04-16 08:45)
DX: M17.11 Unilateral primary osteoarthritis, right knee (principal); Z68.42 Body mass index [BMI] 45.0-49.9, adult; G47.30 Sleep apnea, unspecified; I10 Essential (primary) hypertension; E66.01 Morbid (severe) obesity due to excess calories; E03.9 Hypothyroidism, unspecified; E78.5 Hyperlipidemia, unspecified; E11.9 Type 2 diabetes mellitus without complications; Z79.84 Long term (current) use of oral hypoglycemic drugs
CPT/HCPCS: 36415; 64450; 73560; 82962; 85014; 85018; 94762; 97116; 97161; 97530; C1776; C9290; J0690; J2250; J2405; J2704; J3010

== ENCOUNTER → 2019-04-23 15:43 | Outpatient (CLI) | payer MEDICARE, SELFPAY ==
[2019-04-16 12:12] VITALS: BMI 45.1
== END ==
PROVIDERS: PCP Nurse Practitioner Family; Visit Provider Physician Assistant
DX: R30.0 Dysuria (principal)
CPT/HCPCS: 87077; 87086; 87186